=== PATIENT | male | born 1965 | race African-American/Black ===

== ENCOUNTER 2016-07-13 13:38 | Emergency (ER) | payer OTHER ==
[~2016-07-13] VITALS: Ht 182.9 cm; Wt 108.9 kg
[2016-07-13] MEDS ORDERED: NKM (13:56)
[2016-07-13 14:00] VITALS: BP 146/72
--- NOTE | 2016-07-13 14:19 | Emergency Room Report ---
History of Present Illness General Chief Complaint: General Complaint Source: Patient Present Illness HPI 51 YO M with no known PMHx presents with intermittent dizziness for 1 month. Patient endorses dizziness as in feeling like the "room spins" intermittently when he walks or is driving. Denies assoc nausea/vomiting, headache, tinnitus. Doesnt ever lose balance. Denies assoc chest pain, SOB. Dizziness not worse with head movement. Happened briefly a couple months ago but self-resolved. Saw PMD who said "everthing is fine." Denies fam history of DM, HTN. Doesnt take any meds. Denies ETOH, drug use. Allergies: Coded Allergies: No Known Allergies (Unverified , 07/13/16) Patient History Past Medical History: none Past Surgical History: none Pertinent Family History: none Social History: Denies: alcohol use, drug use, smoking Immunizations: UTD Reviewed Nursing Documentation: PMH: Agreed, PSxH: Agreed Nursing Documentation-PMH Past Medical History: No Stated History Review of Systems All Other Systems: negative except mentioned in HPI Physical Exam Vital Signs Date Time Temp Pulse Resp B/P Pulse Ox O2 Delivery O2 Flow Rate FiO2 07/13/16 13:54 98.2 109 14 125/68 99 Room Air Sp02 EP Interpretation: reviewed, abnormal General Appearance: normal inspection, well appearing, no apparent distress, alert, GCS 15, non-toxic Head: normocephalic, atraumatic Eyes: bilateral eye EOMI, bilateral eye PERRL ENT: normal ENT inspection, hearing grossly normal, normal voice Neck: normal inspection, full range of motion, supple, no bony tend Respiratory: normal inspection, lungs clear, normal breath sounds, no respiratory distress, no retraction, no wheezing Cardiovascular #1: regular rate, rhythm, no edema, tachycardia Gastrointestinal: normal inspection, normal bowel sounds, non tender, soft, no guarding, no hernia Genitourinary: no CVA tenderness Musculoskeletal: normal inspection, back normal, normal range of motion, Ching' s Sign negative Neurologic: normal inspection, alert, oriented x3, responsive, host coordinator III-XII nml as tested, motor strength/tone normal, cerebellar normal, normal gait, speech normal Psychiatric: normal inspection, judgement/insight normal, mood/affect normal Skin: normal inspection, normal color, no rash Lymphatic: normal inspection Medical Decision Making Diagnostic Impression: Primary Impression: Dizziness Additional Impressions: ACOSTA (acute kidney injury) Dehydration ER Course CT head: No mass or ICH. Labs: Significant only for mildly elevated serumCr. No history of CKD. Endorses drinking enough water but drink ETOH after work daily Asymptomatic now Possibly dehydration related dizziness initial HR 106 down to 85 after IVF hydration ECG shows LVH. No ischemia DC home Advised close PMD followup Given copy of labs EKG Diagnostic Results Rate: tachycardiac Rhythm: NSR ST Segments: no acute changes ASA given to the pt in ED: No Rhythm Strip Diag. Results EP Interpretation: yes Rate: 85 Rhythm: NSR, no PVC's, no ectopy Last Vital Signs Date Time Temp Pulse Resp B/P Pulse Ox O2 Delivery O2 Flow Rate FiO2 07/13/16 13:54 98.2 109 14 125/68 99 Room Air Status: improved Disposition: HOME, SELF-CARE RONNI GELLER M.D. Jul 13, 2016 14:19
[2016-07-13 14:45] LABS: BASOPHILS % (AUTO) 1.5 % (0.0-2.0); MEAN CORPUSCULAR HEMOGLOBIN 29.2 PG (27.0-31.0); MEAN CORPUSCULAR HGB CONC 32.6 G/DL (32.0-36.0); MEAN CORPUSCULAR VOLUME 90 FL (80-99); MEAN PLATELET VOLUME 6.2 FL (6.5-10.1); MONOCYTES % (AUTO) 3.9 % (1.0-10.0); NEUTROPHILS % (AUTO) 60.6 % (45.0-75.0); PLATELET COUNT 313 K/UL (150-450); RED BLOOD COUNT 5.33 M/UL (4.70-6.10); RED CELL DISTRIBUTION WIDTH 11.6 % (11.6-14.8); WHITE BLOOD COUNT 6.5 K/UL (4.8-10.8)
[2016-07-13 14:49] LABS: APPEARANCE,URINE CLEAR; KETONES,URINE NEGATIVE (NEGATIVE); LEUKOCYTE ESTERASE ,URINE NEGATIVE (NEGATIVE); NITRITE,URINE NEGATIVE (NEGATIVE); PH,URINE 6 (4.5-8.0); PROTEIN,URINE NEGATIVE (NEGATIVE); UROBILINOGEN,URINE NORMAL MG/DL (0.0-1.0)
[2016-07-13 15:00] VITALS: BP 136/81
--- NOTE | 2016-07-13 15:00 | Diagnostic Imaging Report ---
Indication: Chest pain Technique: One view of the chest Comparison: none Findings: Lungs and pleural spaces are clear. Heart size is normal. Impression: No acute process
[2016-07-13] MEDS ORDERED: LR 1000ml 1,000 ML IV SCH (15:15)
[2016-07-13 15:24] LABS: ANION GAP 17 (5-15); CALCIUM 9.3 mg/dL (8.6-10.2); CARBON DIOXIDE 25 mEQ/L (20-30); CHLORIDE 96 mEQ/L (98-107); CREATININE 1.3 mg/dL (0.7-1.2); GLOMERULAR FILTRATION RATE 57.7 mL/min (>60); POTASSIUM 3.7 mEQ/L (3.4-4.9); SODIUM 138 mEQ/L (135-145)
[2016-07-13 15:25] LABS: ALANINE AMINOTRANSFERASE 34 U/L (3-41); ALBUMIN/GLOBULIN RATIO 1.4 (1.0-2.7); ASPARTATE AMINO TRANSFERASE 28 U/L (5-40); CKMB 1.3 ng/mL (< 6.7); TOTAL PROTEIN 7.7 g/dL (6.6-8.7)
[2016-07-13 15:28] LABS: TROPONIN I < 0.30 ng/mL (<=0.30)
--- NOTE | 2016-07-13 16:00 | Diagnostic Imaging Report ---
Indications: Dizziness, vertigo Technique: Spiral acquisitions obtained through the brain. Angled axial and coronal 5 x 5 mm slices were reconstructed. Total dose length product 1445 mGycm. CTDI vol(s) 70 mGy Comparison: None Findings: No acute hemorrhage or edema. No mass effect or midline shift. Normal woodard-white differentiation. Normal size ventricles and extra axial CSF spaces. Visualized orbits and sinuses are unremarkable. Intact calvarium. Impression: Negative The CT scanner at [facility] is accredited by the [employer] and the scans are performed using protocols designed to limit radiation exposure to as low as reasonably achievable to attain images of sufficient resolution adequate for diagnostic evaluation.
[2016-07-13 17:39] VITALS: BP 139/86
[2016-07-13 18:09] VITALS: BP 139/86
--- NOTE | 2016-07-17 11:37 | Cardiology Report ---
APPROVED REPORT EKG Measurement Heart [id number] Sinus tachycardia Left axis deviation Minimal voltage criteria for LVH, may be normal variant Septal infarct, age undetermined Abnormal ECG
== END 2016-07-13 18:09 | disposition home or self-care (01) ==
LOC: EMR 14:56
DX: N17.9 Acute kidney failure, unspecified (principal); E86.0 Dehydration; R42 Dizziness and giddiness
CPT/HCPCS: 36415; 70450; 71010; 80053; 80300; 81003; 82550; 82553; 84484; 85025; 93005; 96374